=== PATIENT | female | born 1980 | race Hispanic/Latino ===

== ENCOUNTER 2022-03-17 00:09 | Inpatient (IN) | payer BC ==
--- NOTE | 2022-03-17 09:24 | PR ---
[facility] [address] [facility] [place] [address] Signed Progress Notes IP Datetime Report Generated by CPN: 03/17/2022 09:24 PROGRESS NOTES: [id number] Impression: Normal Progression of Labor Procedures: Artificial ROM; Sterile Vag Exam Plan: Continue Present Management VITAL SIGNS: [id number] Vital Signs: Reviewed VS Notable Details: mild HTN EXAM: [id number] Dilatation: 3.0 Effacement: 50 Station: -3 Contractions: rare MEMBRANES: [id number] Comments: Comfortable with epidural. Progressing. Will continue. FETUS A: [id number] Presentation: Vertex Comments on Fetus A: demise FETUS B: [id number] Signing Physician: Tracy Jack MD Copies: ~ *Electronically Signed* 03/17/22923 TRACY JACK MD PATIENT NAME: CHRYSTAL KUMAR PROGRESS NOTE DATE OF : 82 PHYSICIAN: TRACY JACK MD RPT #: [id number] REPORT IS CONFIDENTIAL AND NOT TO BE RELEASED WITHOUT AUTHORIZATION
--- NOTE | 2022-03-17 12:10 | PR ---
[facility] [address] [facility] [place] [address] Signed Progress Notes IP Datetime Report Generated by CPN: 03/17/2022 12:10 PROGRESS NOTES: [id number] Impression: Normal Progression of Labor Procedures: Sterile Vag Exam Plan: Continue Present Management VITAL SIGNS: [id number] Vital Signs: Reviewed VS Notable Details: mild HTN EXAM: [id number] Dilatation: 8.0 Effacement: 90 Station: -1 Contractions: rare MEMBRANES: [id number] Comments: Still comfortable. Progressing well. Will continue. FETUS A: [id number] Presentation: Vertex Comments on Fetus A: demise FETUS B: [id number] Signing Physician: Tracy Jack MD Copies: ~ *Electronically Signed* 03/17/22 1210 TRACY JACK MD PATIENT NAME: CHRYSTAL KUMAR PROGRESS NOTE DATE OF : 82 PHYSICIAN: TRACY JACK MD RPT #: [id number] REPORT IS CONFIDENTIAL AND NOT TO BE RELEASED WITHOUT AUTHORIZATION
--- NOTE | 2022-03-17 17:09 | PR ---
[facility] [address] [facility] [place] [address] Signed PP Progress Notes Datetime Report Generated by CPN: 03/17/2022 17:09 SUBJECTIVE: [id number] Pain: Within Normal Limits Vital Signs: [id number] Vital Signs: Reviewed; Within Normal Limits Cardiovascular: Not Done Respiratory: Not Done Abdomen/Uterus: Abnormal Lochia: Normal Vulva/Perineum: Not Done Breasts: Not Done CVA Tenderness: Not Done Extremities: Not Done Incision: Not Applicable Progress: Not Applicable Exam Comments: Fundus firm, NT @ U-2. IMPRESSION/PLAN/PROCEDURES: [id number] Impression: Normal Progression Other Impression: Demise Plan: Discharge Procedures: None Progress Notes: Doing well overall. She desires D/C. Signing Physician: Tracy Jack MD Copies: ~ *Electronically Signed* 03/17/22 1709 TRACY JACK MD PATIENT NAME: CHRYSTAL KUMAR PROGRESS NOTE DATE OF : 82 PHYSICIAN: TRACY JACK MD RPT #: [id number] REPORT IS CONFIDENTIAL AND NOT TO BE RELEASED WITHOUT AUTHORIZATION
--- NOTE | 2022-03-23 14:37 | PATH ---
[facility] [address] [place], [place] [address] Signed SPECIMEN(S): A PLACENTA SPECIMEN SOURCE: A. PLACENTA CLINICAL HISTORY: Mother's age: 41. OB history: G7, P3, A3. Gestational age: 38.5. score: 0/0. Rh O positive. Maternal serologies: Rubella immune, hepatitis screen negative, GBS negative. Specific issues of concern: Term demise. FINAL PATHOLOGIC DIAGNOSIS: Placenta: - Mature 379 gram placenta (approximately 10th percentile for estimated gestational age) with trivascular umbilical cord. - Focal slight chronic chorionitis. - Negative for significant amnionitis or funisitis. - Focal partial thickness placental disc infarction measuring less than 5% of the placental disc volume. - Patchy villous and perivillous fibrin deposition and calcification. JVR:sjc:C2NR MICROSCOPIC EXAMINATION: Histologic sections of all submitted blocks are examined by light microscopy. These findings, together with the gross examination, support the pathologic diagnosis. GROSS DESCRIPTION: The specimen, labeled "GF, placenta," is received fresh and placed in formalin and consists of a singh discoid placenta with the following parameters: Umbilical cord: Insertion eccentric - 5.7 cm from the margin, measurement 42.7 x 1.5 cm; trivascular. Cord coiling index (per cm): 2. Lesions: The cord has focal areas of ortiz discoloration. Membranes: Insertion site: Marginal, sosa/translucent, rupture site eccentric. Intact. Other: Not grossly identified. Chorionic Plate: Normal radiating vascular pattern, blue-purple, and shiny. Lesions: Multiple, focal submembranous, sosa-white areas of discoloration from 0.2 up to 1.7 cm in greatest dimension and comprising less than 5% of the surface. Other: Not grossly identified. Maternal Surface: Normal cotyledons, intact. Lesions: Multiple, focal areas of adherent blood clot from less than 0.1 up to 3.2 cm in greatest dimension and PATIENT NAME: CHRYSTAL KUMAR PATHOLOGY DATE OF : 82 REPORT #: [id number] PHYSICIAN: PRICILA GUILLERMO PCP: ROSE AQUINO REPORT IS CONFIDENTIAL AND NOT TO BE RELEASED WITHOUT AUTHORIZATION [facility] [address] [place], [place] [address] Signed comprising less than 5% of the surface. Measurement: 18.7 x 17.1 x 2.7 cm. Weight (trimmed): 378.6 g Cut Surface: Maroon and spongy. Lesions: Multiple, focal areas of sosa-white consolidation from less than 0.1 up to 1.2 cm in greatest dimension and comprising less than 5% of the parenchyma. Basal plate fibrin is 0.1 cm in thickness. Other Findings: Not grossly identified. Cassette Summary: (A1) membranes and umbilical cord (A2) central section of placenta (A3) eccentric section of placenta (A4) eccentric section of placenta. AI (under the direct supervision of a pathologist) The Gross Description was prepared using a voice recognition system. The report was reviewed for accuracy; however, sound-alike word errors, addition and/or deletions may occur. If there is any question about this report, please contact Client Services. PERFORMING LABORATORY: The technical component was performed by [facility], [address] [place] [id number] (CLIA# [id number]). Professional interpretation was performed by [facility], [address] [place] [address] Ave[address] [place] [address] (CLIA#: [id number]). Diagnostician: Mj Boudreaux MD Pathologist Electronically Signed 03/23/2022 Copies: ~ PATIENT NAME: CHRYSTAL KUMAR PATHOLOGY DATE OF : 82 REPORT #: [id number] PHYSICIAN: PRICILA PATHOLOGY PCP: ROSE AQUINO REPORT IS CONFIDENTIAL AND NOT TO BE RELEASED WITHOUT AUTHORIZATION
== END 2022-03-17 18:09 | disposition home or self-care (01) | DRG 807 ==
LOC: FBC 00:09
PROVIDERS: ADMIT Obstetrics & Gynecology; ATTEND Obstetrics & Gynecology
PROC: 10E0XZZ Delivery of Products of Conception, External Approach (ICD-10-PCS; principal; 2022-03-17)
PROC: 0KQM0ZZ Repair Perineum Muscle, Open Approach (ICD-10-PCS; 2022-03-17)
PROC: 10907ZC Drainage of Amniotic Fluid, Therapeutic from Products of Conception, Via Natural or Artificial Opening (ICD-10-PCS; 2022-03-17)
PROC: 10907ZC Drainage of Amniotic Fluid, Therapeutic from Products of Conception, Via Natural or Artificial Opening (ICD-10-PCS; 2022-03-17)
PROC: 3E0R3BZ Introduction of Anesthetic Agent into Spinal Canal, Percutaneous Approach (ICD-10-PCS; 2022-03-17)
PROC: 00HU33Z Insertion of Infusion Device into Spinal Canal, Percutaneous Approach (ICD-10-PCS; 2022-03-17)
DX: O36.4XX0 Maternal care for intrauterine death, not applicable or unspecified (principal); Z37.1 Single stillbirth; Z3A.38 38 weeks gestation of pregnancy; O77.0 Labor and delivery complicated by meconium in amniotic fluid; O16.4 Unspecified maternal hypertension, complicating childbirth; Z79.899 Other long term (current) drug therapy
CPT/HCPCS: 36415; 83036; 85025; 85027; 85384; 85460; 85730; 86850; 86900; 86901; 87502; A9270; J2590; J3010; J7121; U0003